=== PATIENT | female | born 1975 | race Caucasian/White ===

== ENCOUNTER 2023-03-27 19:48 | Emergency (ER) | payer BC, OTHER ==
[~2023-03-27] VITALS: Ht 157.5 cm; Wt 74.8 kg
--- NOTE | 2023-03-27 20:06 | NUR ---
No [facility] triage tags
[2023-03-27] MEDS ORDERED: iohexol 300mg/ml 100ml inj. ONE (20:22)
--- NOTE | 2023-03-27 20:40 | NUR ---
Patient to CT
[2023-03-27] MEDS ORDERED: morphine 2 MG/ML inj. syringe IV ONE (20:55)
[2023-03-27] MEDS ORDERED: ondansetron/PF 4mg/2ml inj IV ONE (20:55)
--- NOTE | 2023-03-27 21:05 | NUR ---
Pt back from CT
--- NOTE | 2023-03-27 21:46 | NUR ---
Pt back to CT
--- NOTE | 2023-03-27 22:04 | NUR ---
Pt back from CT
--- NOTE | 2023-03-27 22:25 | NUR ---
C Collar removed per Dr Kelley
[2023-03-27 22:42] VITALS: TEMP 98.3
[2023-03-27] MEDS ORDERED: HYDR-3965 PO (23:19)
[2023-03-27] MEDS ORDERED: HYDROcodone/acetaminophen 10/325mg tab PO ONE (23:30)
--- NOTE | 2023-03-27 23:42 | NUR ---
Patient provided with clothes and assisted into them.
[2023-03-27] MEDS ORDERED: HYDR-3973 PO ×2 (23:48→23:51)
--- NOTE | 2023-03-28 00:06 | NUR ---
Patient able to ambulate to restroom with assistance from .
[2023-03-28 00:23] VITALS: BP 114/79; PULSE 86; RESP 17; O2SAT 96
== END 2023-03-28 00:26 | disposition home or self-care (01) ==
LOC: ER 19:48 → EDBD 19:48 → ER 03-28 00:26
DX: S16.1XXA Strain of muscle, fascia and tendon at neck level, initial encounter (principal); S20.20XA Contusion of thorax, unspecified, initial encounter; S30.1XXA Contusion of abdominal wall, initial encounter; S70.02XA Contusion of left hip, initial encounter; S80.12XA Contusion of left lower leg, initial encounter; R10.9 Unspecified abdominal pain; Z88.6 Allergy status to analgesic agent; V89.2XXA Person injured in unspecified motor-vehicle accident, traffic, initial encounter; Y93.89 Activity, other specified; Y92.89 Other specified places as the place of occurrence of the external cause; Y99.8 Other external cause status
CPT/HCPCS: 70450; 71260; 72125; 72131; 73590; 74177; 96374; 96375; 99285; J2270; J2405; J3490; L0172; Q9967; A4314; C1758